=== PATIENT | female | born 1955 | race Caucasian/White ===

== ENCOUNTER 2025-02-06 11:39 | Day surgery (SDC) | payer MEDICARE, BC, SELFPAY ==
[2025-02-02 15:21] VITALS: BMI 32.1
[2025-02-06 12:29] VITALS: BP 137/63; PULSE 67; RESP 18; TEMP 36.4; O2SAT 100; BMI 32.1
[2025-02-06] MEDS: LACTATED RINGERS 1000ML 1,000 ML 50 ML IV (12:55)
--- NOTE | 2025-02-06 13:24 | EXP.ANES.CKL ---
[facility] Disclaimer: The information contained in this section may have been updated after the patient was seen, as this information can be updated by other users. Medical History History of prediabetes Surgical History History of ankle surgery History of back surgery Family History Father Cancer Mother Hypertension Social History (Updated 02/06/25 @ 12:31 by Hali Rayo RN) Smoking Status: Never smoker alcohol intake: never substance use type: denies use current occupational status: retired Travel in the last 8 weeks?: None [facility] Anesthesia Checklist Patient Identification Patient Identification: Arm Band Structural Data Admitted From: Home Planned Operative Procedure/s: EGD Consent for Planned Operative Procedure(s) Verified: Yes Verified Documents: Surgical Consent and History and Physical NPO Status Verified Time NPO: 00:00 Additional verifications Anesthesia Reactions: No Airway Assessment Mallampati Score:: Class II C-Spine Mobility Assessed: Yes TMJ Mobility Assessed: Yes Dentition: Good Dentition Neurological Assessment Level of Consciousness: Awake, Alert and Appropriate Anesthesia Plan Anesthesia Risk discussed: Yes Anesthesia Plan: Verified ASA Class: II Anesthesia Type: MAC
--- NOTE | 2025-02-06 14:43 | EXP.HP ---
History of Present Illness *Admission Date: 02/06/25 *Reason for visit:: Epigastric abdominal pain, nausea and bloating *History of present illness: Mrs. Pascal is a 69-year-old female who is here for diagnostic EGD secondary to epigastric abdominal pain, nausea, bloating and early satiety. The examination is deemed medically necessary for diagnostic EGD. The patient has been seen, interviewed and examined prior to the procedure by both myself and the anesthesia provider. [facility] Disclaimer: The information contained in this section may have been updated after the patient was seen, as this information can be updated by other users. Medical History (Updated 02/06/25 @ 14:44 by Christo West II, MD) History of prediabetes Surgical History History of ankle surgery History of back surgery Family History Father Cancer Mother Hypertension Social History (Updated 02/06/25 @ 13:25 by Brenton Cavazos CRNA) Smoking Status: Never smoker alcohol intake: never substance use type: denies use current occupational status: retired Travel in the last 8 weeks?: None Have you lived/traveled outside [place] in past 30 days?: No Contact w/someone who lives/traveled outside [place] past 30 days?: No Exposure to someone with infectious disease in past 14 days?: No Do you have a fever (greater than 100.4 F or 38 C)?: No Have you tested positive for COVID-19?: No Exposed to someone with COVID-19 in past 14 days?: No Do you have a sore throat?: No Do you have a cough?: No Do you have any weakness?: No Are you experiencing any nausea/vomitting?: No Do you have any diarrhea?: No Are you experiencing any unusual bleeding?: No Do you have any muscle aches/pain?: No Do you have any abdominal pain?: No Are you experiencing loss of taste or smell?: No Other Medical History Have you received the Pneumonia Vaccine: Yes Review of Systems Review of Systems Review of systems (narrative): Negative *Cardiovascular Comments: Negative *Gastrointestinal Comments: Negative *Genitourinary Comments: Negative *Musculoskeletal Comments: Negative *Neurologic Comments: Negative Meds Home Medications and Allergies Home Medications ?Medication ?Instructions ?Recorded ?Confirmed ?Type acetaminophen 325 mg tablet 325 mg PO QID PRN Pain, Mild 01/24/25 02/06/25 History (Tylenol) celecoxib 200 mg capsule (Celebrex) 200 mg PO DAILY 01/24/25 02/06/25 History coenzyme Q10 100 mg capsule 100 mg PO DAILY 01/24/25 02/06/25 History (CoQ-10) duloxetine 60 mg capsule,delayed 60 mg PO DAILY 01/24/25 02/06/25 History release furosemide 40 mg tablet 40 mg PO DAILY 01/24/25 02/06/25 History loratadine 10 mg tablet (Claritin) 10 mg PO DAILY PRN Allergy Symptoms 01/24/25 02/06/25 History pantoprazole 40 mg tablet,delayed 40 mg PO DAILY 01/24/25 02/06/25 History release plecanatide 3 mg tablet (Trulance) 3 mg PO DAILY #90 tabs 01/24/25 02/06/25 Rx potassium chloride 10 mEq 10 meq PO DAILY 01/24/25 02/06/25 History tablet,extended release(part/cryst) pregabalin 25 mg capsule (Lyrica) 25 mg PO DAILY 01/24/25 02/06/25 History rosuvastatin 5 mg tablet (Crestor) 5 mg PO DAILY 01/24/25 02/06/25 History New Prescriptions to Start Prescriptions: Allergies Allergy/AdvReac Type Severity Reaction Status Date / Time codeine Allergy Blurry Verified 02/02/25 15:09 Vision pramipexole (From Mirapex) Allergy Other Verified 02/02/25 15:09 Exam Data for Last 24 hours Vital signs and Labs for Last 24 Hours: Temp Pulse Resp BP Pulse Ox O2 Del Method 97.5 F L 67 18 137/63 100 Room Air 02/06/25 12:29 02/06/25 12:29 02/06/25 12:29 02/06/25 12:29 02/06/25 12:02/06/25 12:29 I & O for Last 24 hours: Intake & Output 02/03/25 02/04/25 02/05/25 02/06/25 23:59 23:59 23:59 23:59 Weight 199 lb *Routine HEENT Exam Head: Present normocephalic Eye: Present EOMI and PERRL ENT: Present mucous membranes moist *Routine Neck Exam Neck: Present supple *Routine Respiratory Exam Respiratory: Present CTA bilaterally *Routine Cardiovascular Exam Cardiovascular: Present RRR *Routine Abdominal Exam Abdominal: Present soft and normoactive bowel sounds; Absent tenderness *Routine Rectal Exam Rectal:: deferred *Routine Genitalia Exam Genitalia:: deferred *Routine Extremities Exam Extremities: Absent cyanosis, clubbing or edema *Routine Skin Exam Skin: Present warm; Absent rash *Routine Neurological Exam Neurological: Present alert and oriented X3 Assessment and Plan *Assessment and plan (1) Epigastric pain: Status: Acute Category: Medical Code(s): R10.13 - Epigastric pain (2) Nausea: Status: Acute Category: Medical Code(s): R11.0 - Nausea (3) Bloating: Status: Acute Category: Medical Code(s): R14.0 - Abdominal distension (gaseous) (4) Early satiety: Status: Acute Category: Medical Code(s): R68.81 - Early satiety Plan A/P: 1. Epigastric abdominal pain with nausea, bloating and early satiety is the preprocedural diagnosis. The patient will be anesthetized/sedated using MAC sedation. The patient has been seen and examined. Cardiac and lung assessment prior to the examination is stable. Proceed with planned diagnostic EGD.
--- NOTE | 2025-02-06 14:54 | HMH.PROCNOTE ---
[facility] Procedure Note Date: 02/06/25 Time: 15:00 Procedure Note:: Upper Endoscopy Procedure Report: Esophagogastroduodenoscopy with cold biopsies Endoscopost: Christo West II, MD Referring Physician: Abdirahman Castro MD Date of Procedure: February 06, 2025 Equipment: Olympus GIF-1100 standard upper endoscope Sedation: MAC sedation Indications: Mrs. Pascal is a 69-year-old female who is here for diagnostic upper endoscopy secondary to dyspepsia. She reports epigastric abdominal pain and soreness. She reports fullness and early satiety. She also has had nausea, bloating and excessive gassiness. She reports no heartburn or reflux. She has had great difficulty with bowel function with IBS constipation. She is doing a little bit better with Trulance but did not tolerate Linzess or MiraLAX. She did stop drinking carbonated beverages. Her CAT scan was unremarkable. She was switched from omeprazole to pantoprazole which did not significantly help her symptoms. This is her first EGD. Procedure: Prior to the procedure, a history and physical exam was performed, and patient's medications and allergies were reviewed. The risks, benefits and alternatives of the sedation and procedure were discussed with the patient. All questions were answered and informed consent was obtained. The patient was brought to the procedure room. Patient identification and proposed procedure were verified by the physician and the nurse. The patient was placed in a left lateral decubitus position and the scope was passed under direct vision. Throughout the procedure, the patient's blood pressure, pulse, and oxygen saturations were monitored continuously. The upper GI endoscopy was accomplished without difficulty. The patient tolerated the procedure well. Findings: The scope was passed directly into the upper esophagus and advanced to the third and fourth portion of the duodenum. A cold biopsy was taken from the second portion of the duodenum for the disaccharidase assay. The post bulbar duodenum, ampulla and duodenal bulb were normal with normal mucosa and conniventes. The scope was withdrawn through a normal duodenal bulb and pylorus into the stomach. There was bile reflux with mild linear reactive gastropathy of the antrum. The body and fundus of the stomach were normal. Cold biopsies were taken from the antrum and lesser curvature. Upon retroflexion there was a small 2 to 3 cm sliding hiatal hernia. The scope was then withdrawn into the esophagus. There was no evidence of reflux esophagitis or Lerner's. The remainder of the esophageal mucosa was normal. Impression: 1. Nonerosive GERD with mild esophageal dysmotility and small 2 to 3 cm hiatal hernia 2. Bile reflux with mild linear reactive gastropathy of antrum Plan: I will follow-up the biopsies and disaccharidase assay. We will discuss additional treatment options which may include promotility therapy and/or Iberogast. I would also consider neuromodulation for her visceral sensitivity associated with the dyspepsia.
[2025-02-06 15:04] VITALS: BP 120/65; PULSE 72; RESP 17; TEMP 36.3; O2SAT 94
[2025-02-06 15:14] VITALS: BP 123/58; PULSE 71; RESP 17; O2SAT 94
[2025-02-06 15:24] VITALS: BP 123/76; PULSE 65; RESP 17; O2SAT 94
[2025-02-06 15:34] VITALS: BP 125/64; PULSE 62; RESP 17; O2SAT 94
[2025-02-08 15:17] LABS: Interpretation Notes (.); Lactase 57.32 (>/= 14.0); Maltase 218.56 (>/= 110.0); Palatinase 13.17 (>/= 8.5); Reference Notes (.); Sucrase 55.12 (>/= 25.0)
== END 2025-02-06 15:55 | disposition home or self-care (01) ==
PROVIDERS: PCP Family Medicine; Visit Provider Internal Medicine Gastroenterology
PROC: 0DJ08ZZ Inspection of Upper Intestinal Tract, Via Natural or Artificial Opening Endoscopic (ICD-10-PCS; CPT 43239; principal; 2025-02-06 14:00)
DX: K21.9 Gastro-esophageal reflux disease without esophagitis (principal); K44.9 Diaphragmatic hernia without obstruction or gangrene; K31.9 Disease of stomach and duodenum, unspecified; Z88.5 Allergy status to narcotic agent; Z79.899 Other long term (current) drug therapy
CPT/HCPCS: 43239; J2003; J2704; J7120